=== PATIENT | female | born 1995 | race Hispanic/Latino ===

== ENCOUNTER 2024-08-08 19:55 | Day surgery (SDC) | payer OTHER ==
[2024-08-08 20:27] VITALS: BMI 36.3
[2024-08-08] MEDS ORDERED: hydrALAZINE 20 MG/ML VIAL SLOW IVP PRN (20:39)
== END 2024-08-08 21:08 | disposition home or self-care (01) ==
LOC: CSHERS 19:55 → CSHLD/OP 20:06
PROVIDERS: ATTEND Obstetrics & Gynecology
DX: O9A.213 Injury, poisoning and certain other consequences of external causes complicating pregnancy, third trimester (principal); O99.343 Other mental disorders complicating pregnancy, third trimester; F41.9 Anxiety disorder, unspecified; F32.A Depression, unspecified; O34.211 Maternal care for low transverse scar from previous cesarean delivery; O99.013 Anemia complicating pregnancy, third trimester; Z3A.31 31 weeks gestation of pregnancy; Z87.59 Personal history of other complications of pregnancy, childbirth and the puerperium; Z90.49 Acquired absence of other specified parts of digestive tract; Z91.012 Allergy to eggs; Z91.011 Allergy to milk products; Z91.018 Allergy to other foods; Z79.899 Other long term (current) drug therapy; V89.2XXA Person injured in unspecified motor-vehicle accident, traffic, initial encounter
CPT/HCPCS: 36415; 76815; 80053; 81001; 85025; 85060; 86900; 86901; 99282

== ENCOUNTER 2024-09-27 20:58 | Day surgery (SDC) | payer OTHER ==
[2024-09-27 22:00] VITALS: BMI 37.0
[2024-09-27] MEDS ORDERED: hydrALAZINE 20 MG/ML VIAL SLOW IVP PRN (22:32)
== END 2024-09-27 23:26 | disposition home or self-care (01) ==
LOC: CSHLD/OP 20:58
PROVIDERS: ATTEND Obstetrics & Gynecology
DX: O47.1 False labor at or after 37 completed weeks of gestation (principal); O99.013 Anemia complicating pregnancy, third trimester; D50.9 Iron deficiency anemia, unspecified; O34.211 Maternal care for low transverse scar from previous cesarean delivery; Z3A.38 38 weeks gestation of pregnancy; Z87.59 Personal history of other complications of pregnancy, childbirth and the puerperium; Z90.49 Acquired absence of other specified parts of digestive tract; Z91.012 Allergy to eggs; Z91.018 Allergy to other foods; Z91.011 Allergy to milk products; Z79.899 Other long term (current) drug therapy
CPT/HCPCS: 99283

== ENCOUNTER 2025-04-01 08:47 | Emergency (ER) | payer OTHER ==
[2025-04-01] MEDS ORDERED: Bicillin LA 1.2 MILLION UNITS/2 ML SYRINGE IM SCH (09:45)
== END 2025-04-01 10:05 | disposition home or self-care (01) ==
LOC: CSHERS 08:47
DX: J02.0 Streptococcal pharyngitis (principal)
CPT/HCPCS: 87081; 87426; 87430; 96372; 99283; J0561